=== PATIENT | female | born 1935 | race Two or more races ===

== ENCOUNTER 2016-12-10 15:51 | Emergency (ER) | payer MEDICARE, MEDICAID ==
[~2016-12-10] VITALS: Wt 60.0 kg
--- NOTE | 2016-12-10 16:48 | ERD ---
ER Documentation Chief Complaint Date/Time DATE: 12/10/16 TIME: 16:45 Chief Complaint 2 WKS OF RIGHT LOWER LEG PAIN . NO TRAUMA NO SWELLING. NO SOB. HPI This is an 81-year-old female with history of sicca syndrome, GERD, asthma presenting to the emergency department complaining of right calf pain for the past 12 days. Patient states that there is no pain at this moment however she does have pain when she starts to ambulate. She denies any trauma, fevers, swelling, recent surgery, recent traveling or estrogen. Patient denies any knee or hip pain. Patient was seen at [facility] in [place] today and was referred here to rule out DVT ROS All systems reviewed and are negative except as per history of present illness. Allergies Allergies: Coded Allergies: Tetracycline (Verified Allergy, Intermediate, RASH, 09/08/09) Physical Exam Vitals Vital Signs Date Time Temp Pulse Resp B/P Pulse Ox O2 Delivery O2 Flow Rate FiO2 12/10/16 15:56 97.9 88 21 170/80 98 Physical Exam General: WD/WN, in no apparent distress, non-toxic appearing HENT: NC/AT Eyes: Conjunctiva normal Neck: Supple Pulm: Clear to auscultation, normal labored breathing; no wheezing/rales/ rhonchi heard CV: Good capillary refill GI: Non-distended, no guarding Back: No masses Ext: No swelling, pitting edema bilaterally. mild tender to palpation in the right calf, negative Homans sign No erythema, unable to stand and ambulate Neuro: Moves on all fours Skin: intact Psych: Normal mood Procedures/MDM This is an 81-year-old female with history of sicca syndrome, GERD, asthma presenting to the emergency department complaining of right calf pain with standing and ambulating for the past 12 days. Patient was seen at [facility] in [place] today and was referred here to rule out DVT. Venous ultrasound of the right lower extremity was done and did not show any evidence of deep vein thrombosis. X-ray of the right calf was done did not show any evidence of any fracture dislocation. This is likely due to sprain however I discussed with patient to return to her primary care physician Dr. Khoury for follow-up with the next couple days. I discussed return to the ER for any worsening sinus symptoms. Patient understands and agrees with this plan. Patient is neurovascular intact and hemodynamically stable for discharge for home Departure Diagnosis: Primary Impression: Pain of right leg Condition: Stable MERON PALM PA-C December 10, 2016 16:48
--- NOTE | 2016-12-10 17:10 | RADRPT ---
PROCEDURE: US Lower extremity Venous. CLINICAL INDICATION: Right calf pain TECHNIQUE: Multiple sonographic images of the right lower extremity deep venous system was obtaine d utilizing grayscale, color-flow, compressive sonography and doppler imaging with augmentation. COMPARISON: None. FINDINGS: There is normal compressibility / flow within the right common femoral, femoral and popliteal veins. The visualized deep veins of the calf are unremarkable. RPTAT:HJJR IMPRESSION: No sonographic evidence for deep venous thrombosis of the right lower extremity. Physician Padmini Date Time Electronically viewed and signed by Physician Padmini on 12/10/2016 17:09 /
--- NOTE | 2016-12-10 17:20 | RADRPT ---
PROCEDURE: XR Tibia and Fibula 2 Views. CLINICAL INDICATION: Right lower leg pain. TECHNIQUE: AP and lateral views of the right tibia and fibula were obtained. COMPARISON: No prior studies are available for comparison. FINDINGS: The osseous structures are intact. No destructive bony lesions are identified. Interosseous spaces are normal. Soft tissues surrounding the tibia and fibula are unremarkable. IMPRESSION: Unremarkable right tibia and fibula. If further characterization is needed CT or MRI could be helpful. If there is high clinical suspicion for traumatic injury, further evaluation with CT should be consi dered. RPTAT: AA .Gabriele Little MD, Date Time Electronically viewed and signed by .Gabriele Little MD, on 12/10/2016 17:19 .P/
== END 2016-12-10 18:01 | disposition home or self-care (01) ==
LOC: FTE 15:51
DX: M79.604 Pain in right leg (principal)
CPT/HCPCS: 73590; 93971

== ENCOUNTER 2017-11-08 14:32 | Emergency (ER) | END 2017-11-08 17:58 | disposition home or self-care (01) ==